=== PATIENT | female | born 1960 | race Caucasian/White ===

== ENCOUNTER 2019-02-22 06:50 | Day surgery (SDC) | payer SELFPAY ==
[~2019-02-22] VITALS: Ht 75.3 cm; Wt 2.5 kg
[~2019-02-22 06:50] MED LIST: BECLOMETHASONE DIPROPIONATE IN; SEREVENT IN
[2019-02-22 08:58] VITALS: BP 121/63
== END 2019-02-22 09:05 | disposition home or self-care (01) | DRG 395 ==
LOC: ENDO 06:50 → ORM 08:00 → ENDO 08:00
PROVIDERS: ATTEND Surgery
PROC: 0DBH8ZX Excision of Cecum, Via Natural or Artificial Opening Endoscopic, Diagnostic (ICD-10-PCS; principal; 2019-02-22)
PROC: 0DBN8ZX Excision of Sigmoid Colon, Via Natural or Artificial Opening Endoscopic, Diagnostic (ICD-10-PCS; 2019-02-22)
DX: D12.0 Benign neoplasm of cecum (principal); D12.5 Benign neoplasm of sigmoid colon; F17.210 Nicotine dependence, cigarettes, uncomplicated